=== PATIENT | female | born 1985 | race Caucasian/White ===

== ENCOUNTER 2016-07-31 17:43 | Inpatient (IN) | payer MEDICARE, OTHER ==
--- NOTE | ~2016-07-31 | PN ---
Unit #: [id number] #: [id number] Patient: BETTINA RITTER [id number] [facility] [address] [place] [address] [id number] MR#: [id number] NAME: BETTINA RITTER ROOM: P205 Age: 30 Sex: F Admission Date: 07/31/2016 : 1985 Attending Physician: Shaneka Thacker M.D. Admitting Physician: Shaneka Thacker M.D. Primary Care Physician: Primary Care Physician Liliana FERNANDES NOTES DATE 08/04/2016 DISCUSSION Ms. Ritter is a 30-year-old white female with substance abuse and mood disorder who was seen today and chart was reviewed and case was discussed with the staff. She appears to be doing fairly well and appears to be coming out of the detox without any has been impaired and has not able to do activities of daily living. Meanwhile, she has been taking the medications and tolerating them fairly well. MENTAL STATUS EXAMINATION Young white female who was casually dressed with fair personal hygiene, appears to be in no acute distress or discomfort. She was awake and alert on interaction with intact orientation. Her mood was anxious with congruent affect. She denies any suicidal or homicidal ideations. Her insight and judgement remains slightly impaired. TREATMENT PLAN 1. We will continue her on her current medications and treatment protocol. We will monitor her response to the medication and make further adjustments as needed. 2. We will continue to follow up. Dictated by... Heena Escamilla/bette TD: 08/06/2016 02:10 JOB #: [id number] Unit #: [id number] #: [id number] Patient: BETTINA RITTER PROGRESS NOTES Page 1 of 1 X Shaneka Thacker MD PROGRESS NOTE
--- NOTE | ~2016-07-31 | PN ---
Unit #: [id number] #: [id number] Patient: BETTINA RITTER [id number] [facility] [address] [place] [address] [id number] I MR#: [id number] NAME: BETTINA RITTER ROOM: P205 Age: 30 Sex: F Admission Date: 07/31/2016 : 1985 Attending Physician: Shaneka Thacker M.D. Admitting Physician: Shaneka Thacker M.D. Primary Care Physician: Primary Care Physician Liliana FERNANDES NOTES DATE August 01, 2016 DISCUSSION Ms. Ritter is a 30-year-old white female, who was seen today and chart was reviewed and the case was discussed with the staff. She has been anxious, withdrawn, and in distress and discomfort, as she goes through the detox. Meanwhile, she has been taking the medications and tolerating them fairly well. MENTAL STATUS EXAMINATION Young white female, who was casually dressed with fair personal hygiene and appears to be in no acute distress or discomfort. She was awake and alert on interaction with intact orientation. Her mood was anxious with a congruent affect. She denies any suicidal or homicidal ideations, and also denies any auditory or visual hallucinations. Her insight and judgment remain slightly impaired. TREATMENT PLAN 1. We will continue her on her current medications and treatment protocol, and will monitor her response, and make further adjustments as needed. 2. We will continue to followup. Dictated by... Heena Escamilla/saroj TD: 08/02/2016 08:11 JOB #: [id number] Unit #: [id number] #: [id number] Patient: BETTINA RITTER [facility] PROGRESS NOTES X Shaneka Thacker MD PROGRESS NOTE
--- NOTE | ~2016-07-31 | PN ---
Unit #: [id number] #: [id number] Patient: BETTINA RITTER [id number] [facility] [address] [place] [address] [id number] MR#: [id number] NAME: BETTINA RITTER ROOM: P205 Age: 30 Sex: F Admission Date: 07/31/2016 : 1985 Attending Physician: Shaneka Thacker M.D. Admitting Physician: Shaneka Thacker M.D. Primary Care Physician: Primary Care Physician Liliana FERNANDES NOTES DATE OF SERVICE: 08/02/2016 SUBJECTIVE Ms. Ritter is a 30-year-old white female who was seen today and chart was reviewed, and case was discussed with staff. She has been anxious, withdrawn, though has not shown any agitation or irritability, and has been calm and cooperative with treatment recommendations and she has been taking the medications and tolerating them fairly well with no reported side effects. MENTAL STATUS EXAMINATION Young white female who was casually dressed with fair personal hygiene, appears to be in no acute distress or discomfort. She was awake and alert on interaction with intact orientation. Her mood was anxious with a congruent affect. She denies any suicidal or homicidal ideation. Her insight and judgment remain slightly impaired. TREATMENT PLAN 1. We will continue on her current medications and treatment protocol. We will monitor her response to medications and make further adjustments as needed. 2. We will continue to follow up. Dictated by... Heena Escamilla/acosta TD: 08/03/2016 07:18 JOB #: [id number] [facility] FERNANDES NOTES X Shaneka Thacker MD PROGRESS NOTE
--- NOTE | ~2016-07-31 | PA ---
Unit #: [id number] #: [id number] Patient: BETTINA RITTER [id number] [facility] [address] [place] [address] [id number] MR#: [id number] NAME: BETTINA RITTER ROOM: P205 Age: 30 Sex: F Admission Date: 07/31/2016 : 1985 Date of Assessment: 07/31/2016 Attending Physician: Shaneka Thacker M.D. Admitting Physician: Shaneka Thacker M.D. Primary Care Physician: Primary Care Physician No PSYCHIATRIC ASSESSMENT DATE OF SERVICE 07/31/2016. IDENTIFYING DATA Ms. Ritter is a 30-year-old single white female who is a resident of [place], [place] and was brought to the hospital accompanied by her father. CHIEF COMPLAINT "I've been using heroin daily." HISTORY OF PRESENT ILLNESS Ms. Ritter is a 30-year-old white female with dual diagnosis of mood disorder and substance abuse, who was brought to the hospital accompanied by her father. Upon presentation, she stated that she has been using 0.5 to 1 g of heroin IV daily and the patient reports her last use of heroin was yesterday and reports that she had a sobriety for 5 months and she had used heroin on and off for 5 years and reports that she has an abscess from using heroin intravenously and she had surgery on it and reports that she was on Suboxone for a little bit and reports that she took Suboxone 8 mg 3 days ago, but that was 8 and the patient reports that she had recurrent addiction, stated she has seen 2 times so far. The patient reports that she is also recurrent with the psychiatrist, Shawn Jacobson. She sees once a month. She does report increasing depression, anxiety, irritability, restlessness, feelings of hopelessness and helplessness, and has history of suicidal ideation in the past, though currently she denies any suicidal thoughts. SUBSTANCE ABUSE HISTORY The patient reports opioids to be her drug of choice and has been using heroin on and off for the last 5 years and currently has been using up to 1 g of IV heroin a day and denies any other drug abuse. PAST PSYCHIATRIC HISTORY The patient has had history of inpatient chemical dependency psychiatric treatment at [facility] as well as at [facility], and currently she has been seeing Dr. Shawn Jacobson on an outpatient basis and review of the medical records indicate that she has been diagnosed and treated for mood disorder and is on combination of psychotropic medications including Wellbutrin, Trintellix, and Abilify, and Neurontin. PAST MEDICAL HISTORY Atypical trigeminal neuralgia, asthma. Unit #: [id number] #: [id number] Patient: BETTINA RITTER ALLERGIES Latex. PERSONAL AND SOCIAL HISTORY A 30-year-old white female who reports that she is single, disabled, and lives alone and has poor social support system. MENTAL STATUS EXAMINATION Young white female who was casually dressed with fair personal hygiene, appears to be in no acute distress or discomfort. She was awake and alert on interaction with intact orientation to time, place, and person. Her mood was anxious and depressed with a congruent affect. Her speech was slow and restricted in content. She denies any suicidal or homicidal ideations, and also denies any auditory or visual hallucinations. Her insight and judgment remain significantly impaired. DIAGNOSTIC IMPRESSION Psychiatric: Opioid dependence, moderate and acute withdrawals; major depressive disorder, recurrent, moderate, without psychotic features. Medical: Atypical trigeminal neuralgia, asthma. Stressors: Moderate psychosocial stressors. TREATMENT PLAN 1. The patient has presented with history of substance abuse and mood disorder, and has been decompensating and will need inpatient hospitalization for detoxification, and safety, and stabilization. We will start her on detox protocol. We will closely monitor for any worsening withdrawal symptoms. 2. Supportive therapy was provided to the patient. 3. Safe, structured, and nourishing environment will be provided. ESTIMATED LENGTH OF STAY 4 to 5 days. ABILITY TO HELP SELF Limited. WILLINGNESS TO HELP SELF The patient appears to be willing to help self. STRENGTHS 1. Communicative. 2. Cooperative. PROBLEMS 1. Chronic dysphoric symptoms. 2. Chronic chemical dependency. 3. Poor social support system. DISCHARGE CRITERIA This will be contingent upon the patient's ability to go through detox without having any significant withdrawal symptoms as well as her ability to stay safe to herself, particularly after discharge from the hospital. Dictated by... Unit #: [id number] #: [id number] Patient: BETTINA RITTER Heena Escamilla/acosta TD: 08/02/2016 02:19 JOB #: [id number] PSYCHIATRIC ASSESSMENT X Shaneka Thacker MD PSYCHIATRIC ASSESSMENT
--- NOTE | ~2016-07-31 | TN ---
Unit #: [id number] #: [id number] Patient: BETTINA RITTER [id number] [facility] [address] [place] [address] [id number] I MR#: [id number] NAME: BETTINA RITTER ROOM: P205 Age: 30 Sex: F Admission Date: 07/31/2016 : 1985 Discharge Date: 08/07/2016 Attending Physician: Shaneka Thacker M.D. Primary Care Physician: Primary Care Physician No LOC TRANSFER NOTE DATE OF SERVICE: 08/08/2016 DATE OF SERVICE 08/08/2016. HISTORY OF PRESENT ILLNESS Ms. Ritter is a 30-year-old single white female with a history of mood disorder and substance abuse and currently stepped down to the outpatient treatment program from the adult inpatient psychiatric unit, where she was hospitalized under my care from 08/06/2016 to 08/07/2016 and was brought in with increasing depression and anxiety and opioid dependence and was medically detoxed; however, she was pushing to leave and as a matter of fact claimed that her father has an airline ticket for her to go to long-term rehab level of care in [place] and therefore, she had to leave and was let go, but that did not happen and she brought herself back to the program and stating that she knows that we are going to be upset at her, but that she needs help and that she is now in a [facility] and it is a humbling experience as she could not make it to the facility in [place]. She reports that in the past she has been to a residential rehab facility in [place] and her father paid 30,000 dollars from pocket and she still has not been able to stay clean and she and her father scared that she is going to end up dying and we will give her IV heroin. She also has a history of bipolar disorder and as such, has been struggling with depression and anxiety, but denies any current suicidal ideations, intent, or plan. SUBSTANCE ABUSE HISTORY The patient has a history of substance abuse and dependence, and currently, opioids, particularly heroin has been her drug of choice. PAST PSYCHIATRIC HISTORY The patient has had a history of inpatient and outpatient chemical dependency and psychiatric treatment and just recently got out of [facility] on a combination of psychotropic medication. PAST MEDICAL HISTORY No acute or chronic medical illnesses. PERSONAL AND SOCIAL HISTORY A 30-year-old white female, who reports that she is single, employed, and lives at home with her family and is on disability and has fairly decent social support system. Unit #: [id number] #: [id number] Patient: BETTINA RITTER MENTAL STATUS EXAMINATION Young white female, who was casually dressed with fair personal hygiene, appears to be in no acute distress or discomfort. She was awake and alert on interaction with intact orientation. Her mood was anxious and depressed with a congruent affect. Her speech was slow and goal directed. She denies any suicidal or homicidal ideations and also denies any auditory or visual hallucinations. Her insight and judgment remain significantly impaired. DIAGNOSTIC IMPRESSION Psychiatric: Bipolar disorder, most recent episode depressed, recurrent, moderate, without psychotic features and opioid dependence, moderate. Medical: None. Stressors: Moderate psychosocial stressors. TREATMENT PLAN 1. The patient has presented with dual diagnosis of substance abuse and mood disorder. We will recommend enrolling her into the outpatient treatment program and encouraging her to participate (1) . We will monitor her response to the treatment and medications and treatment interventions and make further adjustments as needed. 2. Supportive therapy was provided to the patient. 3. Safe, structured, and nourishing environment will be provided. ESTIMATED LENGTH OF STAY 14 to 21 days. ABILITY TO HELP SELF Limited. WILLINGNESS TO HELP SELF The patient appears to be willing to help self. STRENGTHS 1. Communicative. 2. Cooperative. PROBLEMS 1. Chronic dysphoric symptoms. 2. Chronic chemical dependency. 3. Poor social support system. DISCHARGE CRITERIA This will be contingent upon the patient's ability to show resolution of her depression (2) safe and sober, particularly after discharge from the program. Dictated by... Heena Escamilla/acosta TD: 08/08/2016 21:41 JOB #: [id number] Unit #: [id number] #: [id number] Patient: BETTINA RITTER LOC TRANSFER NOTE Page 1 of 1 X Shaneka Thacker MD LOC TRANSFER NOTE
--- NOTE | ~2016-07-31 | PN ---
Unit #: [id number] #: [id number] Patient: BETTINA RITTER [id number] [facility] [address] [place] [address] [id number] I MR#: [id number] NAME: BETTINA RITTER ROOM: P205 Age: 30 Sex: F Admission Date: 07/31/2016 : 1985 Attending Physician: Shaneka Thacker M.D. Admitting Physician: Shaneka Thacker M.D. Primary Care Physician: Primary Care Physician Liliana FERNANDES NOTES DATE August 06, 2016 DISCUSSION Ms. Ritter is a 30-year-old white female, who was seen today and chart was reviewed and the case was discussed with the staff. She has been anxious, withdrawn, but has not shown any agitation, irritability, or behavioral problems and has been cooperative with the treatment recommendations. She has been taking the medications and tolerating them fairly well with no reported side effects. MENTAL STATUS EXAMINATION Young white female, who was casually dressed with fair personal hygiene and appears to be in no acute distress or discomfort. The patient was awake and alert on interaction with intact orientation. Her mood was anxious with a congruent affect. To denies any suicidal or homicidal ideations, and also denies any auditory or visual hallucinations. Her insight and judgment remain slightly impaired. TREATMENT PLAN 1. We will continue her on her current medications and treatment protocol, and will monitor her response to the medications, and make further adjustments as needed. 2. We will continue to followup. Dictated by... Heena Escamilla/saroj TD: 08/07/2016 13:04 JOB #: [id number] Unit #: [id number] #: [id number] Patient: BETTINA RITTER [facility] PROGRESS NOTES Page 1 of 1 X Shaneka Thacker MD PROGRESS NOTE
--- NOTE | ~2016-07-31 | HP ---
Unit #: [id number] #: [id number] Patient: ALLISON RITTER [id number] [place] [address] [id number] I MR#: [id number] NAME: ALLISON RITTER ROOM: P205 Age: 30 Sex: F Admission Date: 07/31/2016 : 1985 Attending Physician: Shaneka Thacker M.D. Admitting Physician: Shaneka Thacker M.D. Primary Care Physician: Primary Care Physician No HISTORY AND PHYSICAL HISTORY OF PRESENT ILLNESS Allison is a 30 year old admitted to [address] [place] [address] because of her IV drug use. She is detoxing. PAST MEDICAL HISTORY 1. Long history of poly-illicit substance abuse to include IV heroin. 2. Morbid obesity. 3. Asthma. PAST SURGICAL HISTORY 1. Breast reduction. 2. Rhinoplasty. 3. Multiple surgical I and D's of drug site abscesses. ALLERGIES No known drug allergies. SOCIAL HISTORY Smokes 1/2 pack per day. Denies alcohol. Admits to a long history of opioid abuse to include IV heroin. FAMILY HISTORY Medically noncontributory. REVIEW OF SYSTEMS CONSTITUTIONAL: No fever or chills. HEENT: Denies any sore throat, ear pain or runny nose. CARDIOVASCULAR: Denies chest pain, irregular heart rhythm or palpitations. CHEST: Denies shortness of breath or cough. No hemoptysis. GASTROINTESTINAL: Denies nausea, vomiting, diarrhea or chronic constipation. ENDOCRINE: Denies history of increased thirst or urination. No recent significant weight loss or gain. GENITOURINARY: Denies dysuria, frequency, or hematuria. SKIN: Denies any rashes. HEMATOLOGIC: Denies history of increased bleeding or bruising. MUSCULOSKELETAL: Denies any hot, swollen joints. No generalized muscle pain. NEUROLOGIC: Denies problems with vision or speech. No frequent, severe headaches. No numbness, tingling or weakness in any extremities. Denies loss of bladder or bowel control. CURRENT MEDICATIONS Unit #: [id number] #: [id number] Patient: ALLISON RITTER 1. Detox protocol. 2. Bactrim DS 1 p.o. b.i.d. 3. Neurontin 1800 mg q.h.s. 4. Doxepin 10 mg q.h.s. 5. Proventil inhaler p.r.n. PHYSICAL EXAMINATION GENERAL: Alert, well-nourished, no apparent distress. VITAL SIGNS: Blood pressure 110/64, heart rate 76, respirations 16, temperature 98.6. WEIGHT: 200. HEIGHT: 5 feet 3 inches. SKIN: Warm and dry without rash. She does have approximately 2 inch long surgical site along the right AC area. The area has started to heal by secondary intention. There is no increased redness, swelling, heat or pus noted. HEENT: Normocephalic. TMs not viewed. Oral and nasal passages clear. Conjunctivae clear. PERRLA. EOMs intact. NECK: Supple without lymphadenopathy or thyromegaly. HEART: Regular rate and rhythm without murmur. LUNGS: Clear. ABDOMEN: Soft, nontender. : Not done. EXTREMITIES: No evidence of cyanosis, clubbing or edema. Moves all without focal deficit. NEUROLOGICAL: Grossly within normal limits. Cranial Nerves: II: Visual colon are intact. III, IV AND : Extraocular movements are intact. Pupils are equal, round and reactive to light. V: Facial sensation is grossly normal. VII: Facial movements and expression are normal. VIII: Auditory acuity grossly intact. IX, X: Uvula is midline. Phonation is normal. XI: Patient shrugs shoulders and turns head normally. XII: Tongue protrudes in the midline. Sensory and Motor Function: Sensory and motor sensation is grossly normal. Motor: moves all extremities well. Coordination: Gait is normal. Deep Tendon Reflexes: Intact. IMPRESSION 1. Psychiatric admission. 2. Long history of opioid abuse to include IV heroin. 3. Recent I and D of an IV abscess. The area is healing well. RECOMMENDATIONS PSYCHIATRIC: Per psychiatrist. MEDICAL: 1. See no contraindications to participate in facility's activities. 2. Detox per protocol. 3. Keep the wound on the right arm covered with a wet-to-dry dressing b.i.d. MEDICAL PROGNOSIS Good. MEDICAL CONDITION Stable. Unit #: [id number] #: [id number] Patient: ALLISON RITTER Dictated by... Temi Ron P.A.-C. for Heena Bolton/george TD: 08/01/2016 18:39 JOB #: [id number] HISTORY AND PHYSICAL X Temi Ron HISTORY AND PHYSICAL
--- NOTE | ~2016-07-31 | PN ---
Unit #: [id number] #: [id number] Patient: BETTINA RITTER [id number] [facility] [address] [place] [address] [id number] MR#: [id number] NAME: BETTINA RITTER ROOM: P205 Age: 30 Sex: F Admission Date: 07/31/2016 : 1985 Attending Physician: Shaneka Thacker M.D. Admitting Physician: Shaneka Thacker M.D. Primary Care Physician: Primary Care Physician Liliana FERNANDES NOTES DATE OF SERVICE: 08/03/2016 SUBJECTIVE Ms. Ritter is a 30-year-old white female, who was seen today and chart was reviewed and the case was discussed with the staff. She has been anxious, withdrawn, depressed, and rather seclusive to herself, but she makes comments that she is doing "a little bit better." Meanwhile, she has been compliant with the treatment recommendations and has been taking the medications and tolerating them fairly well with no reported side effects. MENTAL STATUS EXAMINATION Young white female, who was casually dressed with a fair personal hygiene, appears to be in no acute distress or discomfort. She was awake and alert on interaction with intact orientation. Her mood was anxious with a congruent affect. She denies any suicidal or homicidal ideation. Her insight and judgment remain slightly impaired. TREATMENT PLAN 1. We will continue her on her current medications and treatment protocol. We will monitor her response to the medications and make further adjustments as needed. 2. We will continue to follow up. Dictated by... Heena Escamilla/acosta TD: 08/03/2016 21:07 JOB #: [id number] [facility] PROGRESS NOTES X Shaneka Thacker MD PROGRESS NOTE
--- NOTE | ~2016-07-31 | PN ---
Unit #: [id number] #: [id number] Patient: BETTINA RITTER [id number] [facility] [address] [place] [address] [id number] I MR#: [id number] NAME: BETTINA RITTER ROOM: P205 Age: 30 Sex: F Admission Date: 07/31/2016 : 1985 Attending Physician: Shaneka Thacker M.D. Admitting Physician: Shaneka Thacker M.D. Primary Care Physician: Primary Care Physician Liliana FERNANDES NOTES DATE OF SERVICE: 08/05/2016 SUBJECTIVE Ms. Ritter is a 30-year-old white female with substance abuse and mood disorder, who was seen today and chart was reviewed and case was discussed with the staff. She has been anxious, withdrawn, and rather seclusive to herself. Meanwhile, she has been cooperative with treatment recommendations and has been taking the medications and tolerating them fairly well. MENTAL STATUS EXAMINATION Young white female who was casually dressed with fair personal hygiene, appears to be in no acute distress or discomfort. She was awake and alert on interaction with intact orientation. Her mood was anxious with a congruent affect. She denies any suicidal or homicidal ideations. Her insight and judgment remain slightly impaired. TREATMENT PLAN 1. We will continue her on her current treatment protocol. We will monitor her response to the medications and make further adjustments as needed. 2. We will continue to follow up. Dictated by... Heena Escamilla/brianl TD: 08/06/2016 19:39 JOB #: [id number] [facility] PROGRESS NOTES Page 1 of 1 X Shaneka Thacker MD X PROGRESS NOTE
--- NOTE | ~2016-07-31 | PN ---
Unit #: [id number] #: [id number] Patient: BETTINA RITTER [id number] [facility] [address] [place] [address] [id number] MR#: [id number] NAME: BETTINA RITTER ROOM: P205 Age: 30 Sex: F Admission Date: 07/31/2016 : 1985 Attending Physician: Shaneka Thacker M.D. Admitting Physician: Shaneka Thacker M.D. Primary Care Physician: Primary Care Physician Liliana FERNANDES NOTES DATE OF SERVICE 08/07/2016 DISCUSSION Ms. Ritter is a 30-year-old white female who was seen today. Chart was reviewed and case was discussed with the staff. She has been anxious, withdrawn, and rather seclusive to herself. Meanwhile, she has been cooperative with the treatment recommendations and has been taking the medications and tolerating them fairly well with no reported side effects. MENTAL STATUS EXAMINATION Young white female who is casually dressed with fair personal hygiene, appears to be in no acute distress or discomfort. The patient was awake and alert on interaction with intact orientation. Her mood is anxious with congruent affect. She denies any suicidal or homicidal ideations. Her insight and judgment remain slightly impaired. TREATMENT PLAN 1. We will continue her on her current medications and treatment protocol. We will monitor her response to the medications and make further adjustments as needed. 2. We will continue to follow up. Dictated by... Shaneka Thacker M.D. IAA/bzg TD: 08/08/2016 07:11 JOB #: [id number] [facility] PROGRESS NOTES Page 1 of 1 X Shaneka Thacker MD PROGRESS NOTE
--- NOTE | ~2016-07-31 | CO ---
Unit #: [id number] #: [id number] Patient: ALLISON RITTER [id number] [place] [address] [id number] MR#: [id number] NAME: ALLISON RITTER ROOM: P205 Age: 30 Sex: F Admission Date: 07/31/2016 : 1985 Attending Physician: Shaneka Thacker M.D. Primary Care Physician: Primary Care Physician No Consultation Date: 08/01/2016 CONSULTATION REPORT SUBJECTIVE Allison is a 30-year-old with a long history of IV drug use. She had an IV drug site I and D'd a number of weeks prior to this admission. The area was examined and described under her admission H and P. Please see H and P dated 08/01/2016. Dictated by... Temi Ron P.A.-C. for Heena Bolton/acosta TD: 08/02/2016 07:21 JOB #: [id number] CONSULTATION REPORT X Temi Ron CONSULTATION REPORT
[2016-08-02 13:21] LABS: BASOPHIL# 0.1 X10e3 (0-0.3); BASOPHIL% 0.8 % (0-2.5); EOSINOPHIL# 0.2 X10e3 (0-0.7); EOSINOPHIL% 3.6 % (0.0-7.0); HEMATOCRIT 38.9 % (35.0-45.0); HEMOGLOBIN 12.3 gm/dL (12.0-16.0); LYMPHOCYTE# 2.2 X10e3 (1.0-3.5); LYMPHOCYTE% 32.8 % (17.0-45.0); MEAN CELL VOLUME 79.6 FL (83-96); MEAN CORPUSCULAR HEMOGLOBIN 25.2 PG (28-34); MEAN CORPUSCULAR HGB CONC 31.7 g/dL (30-36); MEAN PLATELET VOLUME 8.8 FL (6.5-11.5); MONOCYTE# 0.5 X10e3 (0-1.0); MONOCYTE% 6.8 % (3.0-12.0); NEUTROPHIL# 3.8 X10e3 (1.5-7.1); PLATELET COUNT 277 X10e3 (140-420); RED BLOOD COUNT 4.89 X10e (3.90-5.30); RED CELL DISTRIBUTION WIDTH 15.5 % (11.0-15.5); WHITE BLOOD COUNT 6.8 X10e3 (4.0-10.5)
[2016-08-02 13:25] LABS: DIFF IND NO
[2016-08-02 13:25] LABS: URINE APPEARANCE CLEAR; URINE BILIRUBIN NEG (NEG); URINE BLOOD NEG (NEG); URINE COLOR YELLOW; URINE GLUCOSE NEG (NEG); URINE KETONE NEG (NEG); URINE LEUKOCYTE ESTERASE 2+ (NEG); URINE NITRATE NEG (NEG); URINE PROTEIN NEG (NEG); URINE SPECIFIC GRAVITY 1.008 (1.003-1.035); URINE UROBILINOGEN 0.2 MG/DL (NEG)
[2016-08-02 13:28] LABS: U HYALINE CASTS AUWI 0-2 /[LPF]; URBCS1 AUWI 0-2 /[HPF] (0-2); URINE BACTERIA AUWI 2+ (NEGATIVE); URINE SQUAMOUS EPITHELIAL CELL OCC /[HPF]
[2016-08-02 13:45] LABS: THYROID STIMULATING HORMONE 1.02 uIU/ml (0.34-5.60)
[2016-08-02 13:52] LABS: FREE THYROXIN (T4) 0.89 ng/dL (0.58-1.64)
[2016-08-02 13:53] LABS: ALBUMIN SERUM 3.8 g/dL (3.5-5.0); ALKALINE PHOSPHATASE 78 U/L (32-92); ALT (SGPT) 27 U/L (10-40); AST (SGOT) 29 U/L (10-42); BILIRUBIN,TOTAL 0.3 mg/dL (0.2-2.0); BLOOD UREA NITROGEN 9 mg/dL (9-23); BUN/CREATININE RATIO 11.25; CALCIUM SERUM 9.1 mg/dL (8.4-10.2); CARBON DIOXIDE 27 mmol/L (22-31); CHLORIDE 108 mmol/L (100-111); CREATININE SERUM 0.8 mg/dL (0.6-1.4); GLOM FILT RATE Estimated ABOVE60 mL/min (>60); GLUCOSE FASTING 78 mg/dL (70-110); POTASSIUM 4.6 mmol/L (3.5-5.1); PROTEIN TOTAL SERUM 6.9 g/dL (6.0-8.3); SODIUM 141 mmol/L (135-145)
[2016-08-02 14:01] LABS: AMPHETAMINE NEG (NEG); BARBITURATES NEG (NEG); BENZODIAZEPINES NEG (NEG); COCAINE NEG (NEG); MARIJUANA NEG (NEG); OPIATES NEG (NEG); TRICYCLIC ANTIDEPRESSANTS NEG (NEG); U METHADONE NEG (NEG)
== END 2016-08-07 17:09 | DRG 897 ==
LOC: P2S 17:43
PROVIDERS: Psychiatry & Neurology Psychiatry
PROC: HZ2ZZZZ Detoxification Services for Substance Abuse Treatment (ICD-10-PCS; principal; 2016-07-31)
DX: F11.23 Opioid dependence with withdrawal (principal); E66.01 Morbid (severe) obesity due to excess calories; F31.32 Bipolar disorder, current episode depressed, moderate; G50.0 Trigeminal neuralgia; J45.909 Unspecified asthma, uncomplicated; F17.200 Nicotine dependence, unspecified, uncomplicated; F41.9 Anxiety disorder, unspecified
CPT/HCPCS: 80053; 80307; 81003; 84439; 84443; 84703; 85025; 86592